=== PATIENT | female | born 1960 | race African-American/Black ===

== ENCOUNTER 2022-03-14 16:08 | Emergency (ER) | payer BC ==
[~2022-03-14] VITALS: Ht 165.1 cm; Wt 82.0 kg
[2022-03-14] MEDS ORDERED: AMLODIPINE 5MG TABLET PO ONE ×2 (18:00→19:30)
[2022-03-14] MEDS ORDERED: CYCLOBENZAPRINE 10MG TABLET PO ONE (18:00)
[2022-03-14 19:43] LABS: BASOPHILS % 0.4 % (0.0-2.0); EOSINOPHILS % 1.9 % (0.0-5.0); HEMATOCRIT. 39.1 % (36.0-48.0); HEMOGLOBIN. 12.8 g/dL (12.0-16.0); LYMPHOCYTES % 35.3 % (20.0-50.0); MEAN CORPUSCULAR HEMOGLOBIN 28.3 pg (28.0-32.0); MEAN CORPUSCULAR VOLUME 86.4 fL (81.0-99.0); MEAN PLATELET VOLUME 9.4 fl (7.4-10.4); MONOCYTES % 10.7 % (2.0-8.0); NEUTROPHILS % 51.7 % (40.0-76.0); PLATELET 187 x1000/uL (130-400); RED BLOOD CELL COUNT 4.53 mill/uL (4.2-5.4); RED CELL DISTRIBUTION WIDTH 13.5 % (11.6-14.6)
[2022-03-14 19:44] LABS: CHLORIDE 109 mEq/L (98-107)
[2022-03-14] MEDS ORDERED: AMLO10TA4 MT (22:42)
[2022-03-14 23:19] VITALS: BP 169/71
== END 2022-03-14 23:34 | disposition home or self-care (01) ==
LOC: ER 16:08
DX: I16.0 Hypertensive urgency (principal); E87.6 Hypokalemia; Z90.49 Acquired absence of other specified parts of digestive tract
CPT/HCPCS: 36415; 80053; 84484; 85025; 93005; 99284

== ENCOUNTER 2022-06-20 19:03 | Emergency (ER) | payer BC ==
[~2022-06-20] VITALS: Ht 154.9 cm; Wt 84.7 kg
[~2022-06-20 19:03] MED LIST: AMLO10TA4 MT
[2022-06-20] MEDS ORDERED: AMLODIPINE 10MG TABLET PO ONE (20:45)
[2022-06-20] MEDS ORDERED: KETOROLAC 60MG/2ML VIAL IM ONE (20:45)
[2022-06-20 21:19] VITALS: BP 200/91
[2022-06-20 21:48] LABS: BASOPHILS % 0.4 % (0.0-2.0); EOSINOPHILS % 1.9 % (0.0-5.0); HEMATOCRIT. 39.7 % (36.0-48.0); HEMOGLOBIN. 13.6 g/dL (12.0-16.0); LYMPHOCYTES % 7.7 % (20.0-50.0); MEAN CORPUSCULAR HEMOGLOBIN 28.4 pg (28.0-32.0); MEAN PLATELET VOLUME 9.3 fl (7.4-10.4); PLATELET 188 x1000/uL (130-400); RED BLOOD CELL COUNT 4.79 mill/uL (4.2-5.4); RED CELL DISTRIBUTION WIDTH 13.1 % (11.6-14.6)
[2022-06-20 22:00] LABS: CHLORIDE 98 mEq/L (98-107)
[2022-06-20] MEDS ORDERED: AMLO10TA80 MT (22:21)
== END 2022-06-20 22:57 | disposition home or self-care (01) ==
LOC: ER 19:03
DX: J11.1 Influenza due to unidentified influenza virus with other respiratory manifestations (principal); I10 Essential (primary) hypertension; Z20.822 Contact with and (suspected) exposure to COVID-19; Z90.49 Acquired absence of other specified parts of digestive tract; Z76.0 Encounter for issue of repeat prescription
CPT/HCPCS: 36415; 71045; 80053; 83605; 84145; 84484; 85025; 87040; 87070; 87426; 87430; 87804; 93005; 96372; 99285; C9803; J1885